=== PATIENT | female | born 1945 ===

== ENCOUNTER 2025-02-04 13:31 | Inpatient (IN) | payer MEDICARE ==
[~2025-02-04] VITALS: Ht 167.6 cm; Wt 61.2 kg
[2025-02-04 14:08] VITALS: BP 124/84; TEMP 98.2
[2025-02-04 14:22] VITALS: BP 124/84; TEMP 98.2
[2025-02-04] MEDS ORDERED: REMEDY ESSENTIAL ZINC PASTE 113 GM TOP PRN (20:15)
[2025-02-04] MEDS ORDERED: OXYC10SY PO (20:27)
[2025-02-04 20:43] VITALS: BP 141/77; TEMP 98; O2SAT 95
[2025-02-04] MEDS: OXYCODONE HCL 5 MG TABLET PO PRN (20:43)
[2025-02-04] MEDS ORDERED: HYDR12.55 PO (22:20)
[2025-02-04] MEDS ORDERED: ASPI-618 PO (22:20)
[2025-02-04] MEDS ORDERED: TRAM50TA PO ×2 (22:20)
[2025-02-04] MEDS ORDERED: ACET-2030 PO (22:20)
[2025-02-04] MEDS ORDERED: ZOLP5TAB2 PO (22:20)
[2025-02-04] MEDS ORDERED: ROPIVACAINE (22:20)
[2025-02-04] MEDS ORDERED: EZET10TA15 PO (22:20)
[2025-02-04] MEDS ORDERED: DEXA4VIA19 IM/IV (22:20)
[2025-02-04] MEDS ORDERED: ONDA4TAB5 PO (22:20)
[2025-02-04] MEDS ORDERED: LOSA50TA3 PO (22:20)
[2025-02-04] MEDS ORDERED: TRAZ-257 PO (22:20)
[2025-02-04] MEDS ORDERED: HYDR-4209 PO (22:20)
[2025-02-04] MEDS ORDERED: ROSU20TA2 PO (22:20)
[2025-02-04] MEDS ORDERED: AMLO5TAB4 PO (22:20)
[2025-02-04] MEDS: TRAZODONE 100 MG TABLET PO SCH ×2 (23:00→23:12)
[2025-02-04] MEDS: ASPIRIN EC 81 MG TABLET.DR PO SCH ×2 (23:00→23:09)
[2025-02-04] MEDS: ASPIRIN EC 81 MG TABLET.DR PO ONE (23:08)
[2025-02-04] MEDS: KETOROLAC TROMETHAMINE 15 MG INJ IVP ONE (23:09)
[2025-02-04] MEDS: TRAZODONE 100 MG TABLET ONE (23:12)
[2025-02-04] MEDS: SENNOSIDES 1 TABLET PO SCH (23:13)
[2025-02-04] MEDS ORDERED: HYDROCODONE/APAP 5-325MG TABLET PO PRN (23:30)
[2025-02-04] MEDS: HYDROCODONE/APAP 5-325MG TABLET PO PRN (23:53)
[2025-02-05 07:26] LABS: CALCIUM 8.8 mg/dL (8.5-10.1); CARBON DIOXIDE 28 mmol/L (21-32); CHLORIDE 104 mmol/L (98-107); CREATININE 0.9 mg/dL (0.6-1.3); GLUCOSE 97 mg/dL (74-106); MAGNESIUM 1.6 mg/dL (1.8-2.4); PHOSPHOROUS 2.9 mg/dL (2.5-4.9); POTASSIUM 4.5 mmol/L (3.5-5.1); SODIUM SERUM 139 mmol/L (136-145); UREA NITROGEN, BLOOD 16 mg/dL (7-18)
[2025-02-05 08:00] VITALS: BP 124/68; TEMP 98.5; O2SAT 98
[2025-02-05 08:00] LABS: BASOPHILS % (AUTO) 0.3 % (0.0-2.0); DIFFERENTIAL COMMENT 0; EOSINOPHILS # (AUTO) 0.1 K/uL (0.0-0.7); EOSINOPHILS % (AUTO) 0.7 % (0.0-7.0); HEMATOCRIT 27.9 % (31.2-41.9); HEMOGLOBIN 9.4 g/dL (10.9-14.3); LYMPHOCYTES # (AUTO) 1.4 K/uL (0.8-4.8); LYMPHOCYTES % (AUTO) 16.3 % (20.5-51.5); MEAN CORPUSCULAR HEMOGLOBIN 28.9 uug (24.7-32.8); MEAN CORPUSCULAR HGB CONC 34 g/dL (32.3-35.6); MEAN CORPUSCULAR VOLUME 85.8 fL (75.5-95.3); MONOCYTES # (AUTO) 1.1 K/uL (0.1-1.30); MONOCYTES % (AUTO) 12.5 % (0.0-11.0); NEUTROPHILS # (AUTO) 6.1 K/uL (1.8-8.9); NEUTROPHILS % (AUTO) 70.2 % (38.5-71.5); PLATELET COUNT (AUTO) 282 K/uL (179-408); RED BLOOD CELL COUNT(AUTO) 3.25 MIL/uL (3.63-4.92); RED CELL DISTRIBUTION WIDTH 15.4 % (12.3-17.7); WHITE BLOOD COUNT (AUTO) 8.8 K/uL (3.8-11.8)
[2025-02-05] MEDS: AMLODIPINE 5 MG TABLET PO SCH (08:35)
[2025-02-05] MEDS: HYDROCHLOROTHIAZIDE 12.5 MG CAPSULE PO SCH (08:35)
[2025-02-05] MEDS: EZETIMIBE 10 MG TABLET PO SCH (08:36)
[2025-02-05] MEDS: LOSARTAN POTASSIUM 50 MG TABLET PO SCH (08:36)
[2025-02-05] MEDS ORDERED: MAGN400O6 PO (10:20)
[2025-02-05] MEDS ORDERED: MAGN355O5 PO (10:23)
[2025-02-05] MEDS ORDERED: OXYC5TAB3 PO (10:26)
[2025-02-05] MEDS ORDERED: OXYC10TA49 PO (10:27)
[2025-02-05] MEDS ORDERED: OLME20TA13 PO (10:29)
[2025-02-05] MEDS: MIRALAX 17 GM POWD.PACK PO PRN (12:46)
[2025-02-05] MEDS: MAGNESIUM OXIDE 400 MG TABLET PO ONE (15:25)
[2025-02-05 16:15] VITALS: BP 108/63; TEMP 98.7; O2SAT 95
[2025-02-05] MEDS: ARGININE/GLUTAMINE/CALCIUM BMB 1 EACH POWD.PACK PO SCH (17:41)
[2025-02-05 20:15] VITALS: BP 120/57; TEMP 99.8; O2SAT 96
[2025-02-05] MEDS: ACETAMINOPHEN 325 MG TABLET PO PRN (20:17)
[2025-02-05] MEDS: ATORVASTATIN 40 MG TABLET PO SCH (20:34)
[2025-02-05] MEDS: TRAZODONE 100 MG TABLET PO SCH (21:22)
[2025-02-06 04:22] VITALS: BP 125/63; TEMP 98.5; O2SAT 97
[2025-02-06 07:47] LABS: CALCIUM 8.9 mg/dL (8.5-10.1); CARBON DIOXIDE 31 mmol/L (21-32); CHLORIDE 99 mmol/L (98-107); CREATININE 0.9 mg/dL (0.6-1.3); GLUCOSE 102 mg/dL (74-106); POTASSIUM 4.5 mmol/L (3.5-5.1); SODIUM SERUM 137 mmol/L (136-145); UREA NITROGEN, BLOOD 12 mg/dL (7-18)
[2025-02-06 08:30] VITALS: BP 117/60; TEMP 100; O2SAT 95
[2025-02-06 16:12] VITALS: BP 107/59; TEMP 99.9; O2SAT 96
[2025-02-06 21:40] VITALS: BP 99/49; TEMP 99.8; O2SAT 93
[2025-02-07 07:10] VITALS: BP 117/47; TEMP 97.8; O2SAT 94
[2025-02-07 08:00] VITALS: BP 98/59; TEMP 98.1; O2SAT 97
[2025-02-07] MEDS ORDERED: NALOXONE HCL 0.4 MG/ML AMPUL IV PRN (13:15)
[2025-02-07] MEDS: OXYCODONE HCL 10 MG TAB.SR.12H PO SCH (14:50)
[2025-02-07] MEDS: BISACODYL 5 MG TABLET.DR PO PRN (14:50)
[2025-02-07 15:47] VITALS: BP 102/53; TEMP 97.2; O2SAT 97
[2025-02-07] MEDS: HYDROCODONE/APAP 10-325 MG TABLET PO PRN (17:29)
[2025-02-07 19:00] VITALS: BP 121/61; TEMP 99.1; O2SAT 97
[2025-02-07] MEDS: DOCUSATE SODIUM 250 MG CAPSULE PO PRN (21:22)
[2025-02-08 07:05] VITALS: BP 116/65; TEMP 98.9; O2SAT 96
[2025-02-08 09:28] VITALS: BP 110/58; TEMP 98.2; O2SAT 96
[2025-02-08 16:30] VITALS: BP 102/50; TEMP 98.8; O2SAT 96
[2025-02-08 19:40] VITALS: BP 112/56; TEMP 98.2; O2SAT 94
[2025-02-09 06:50] VITALS: BP 112/59; TEMP 98.1; O2SAT 98
[2025-02-09 08:00] VITALS: BP 124/62; TEMP 97.8; O2SAT 94
[2025-02-09 08:28] LABS: BASOPHILS # (AUTO) 0.1 K/UL (0.0-0.2); EOSINOPHILS # (AUTO) 0.3 K/uL (0.0-0.7); EOSINOPHILS % (AUTO) 4.4 % (0.0-7.0); HEMATOCRIT 25.9 % (31.2-41.9); LYMPHOCYTES # (AUTO) 1.4 K/uL (0.8-4.8); LYMPHOCYTES % (AUTO) 18.3 % (20.5-51.5); MEAN CORPUSCULAR HEMOGLOBIN 29.9 uug (24.7-32.8); MEAN CORPUSCULAR HGB CONC 35 g/dL (32.3-35.6); MEAN CORPUSCULAR VOLUME 86.1 fL (75.5-95.3); MONOCYTES % (AUTO) 13.8 % (0.0-11.0); NEUTROPHILS # (AUTO) 4.6 K/uL (1.8-8.9); NEUTROPHILS % (AUTO) 62.5 % (38.5-71.5); PLATELET COUNT (AUTO) 380 K/uL (179-408); RED BLOOD CELL COUNT(AUTO) 3.01 MIL/uL (3.63-4.92); RED CELL DISTRIBUTION WIDTH 14.8 % (12.3-17.7); WHITE BLOOD COUNT (AUTO) 7.4 K/uL (3.8-11.8)
[2025-02-09 08:34] LABS: DIFFERENTIAL COMMENT 1
[2025-02-09 08:49] LABS: IRON, SERUM 29 ug/dL (50-175)
[2025-02-09 09:03] LABS: THYROID STIMULATING HORMONE 1.773 mIU/mL (0.358-3.740)
[2025-02-09 09:25] LABS: ALANINE AMINOTRANSFERASE 31 U/L (14-59); ALBUMIN 2.7 g/dL (3.4-5.0); ALKALINE PHOSPHATASE 60 U/L (50-136); ASPARTATE AMINOTRANSFERASE 27 U/L (15-37); BILIRUBIN,TOTAL 0.4 mg/dL (0.2-1.0); CALCIUM 8.9 mg/dL (8.5-10.1); CARBON DIOXIDE 32 mmol/L (21-32); CHLORIDE 101 mmol/L (98-107); CHOLESTEROL 142 mg/dL (<200); CREATININE 0.8 mg/dL (0.6-1.3); GLUCOSE 107 mg/dL (74-106); HDL CHOLESTEROL 67 mg/dL (40-60); MAGNESIUM 2.3 mg/dL (1.8-2.4); PHOSPHOROUS 4.2 mg/dL (2.5-4.9); POTASSIUM 4.1 mmol/L (3.5-5.1); SODIUM SERUM 139 mmol/L (136-145); TOTAL PROTEIN, SERUM 6.8 g/dL (6.4-8.2); TRIGLYCERIDES 84 MG/DL (30-150); UREA NITROGEN, BLOOD 22 mg/dL (7-18)
[2025-02-09 16:35] VITALS: BP 127/66; TEMP 99.7; O2SAT 95
[2025-02-09 19:45] VITALS: BP 148/70; TEMP 97.9; O2SAT 94
[2025-02-09] MEDS: ATORVASTATIN 20 MG TABLET PO SCH (21:20)
[2025-02-10 06:30] VITALS: BP 123/64; TEMP 98.5; O2SAT 94
[2025-02-10] MEDS: FERROUS GLUCONATE 324 MG TABLET PO SCH (08:06)
[2025-02-10 18:52] VITALS: BP 100/42; TEMP 97.7; O2SAT 95
[2025-02-10 20:00] VITALS: BP 112/55; TEMP 98; O2SAT 96
[2025-02-11 06:52] VITALS: BP 120/66; TEMP 97.3; O2SAT 95
[2025-02-11 07:55] VITALS: BP 120/66; TEMP 98; O2SAT 95
[2025-02-11 16:12] VITALS: BP 101/50; TEMP 97.6; O2SAT 97
[2025-02-11 19:23] VITALS: BP 104/57; TEMP 98.3; O2SAT 97
[2025-02-11] MEDS ORDERED: SENNOSIDES 1 TABLET PO PRN (21:45)
[2025-02-12 05:50] VITALS: BP 112/56; TEMP 98.2; O2SAT 98
[2025-02-12 08:00] VITALS: BP 111/67; TEMP 98.7; O2SAT 96
[2025-02-12] MEDS: METOPROLOL SUCCINATE XL 25 MG TAB.SR.24H PO SCH (08:26)
[2025-02-12 17:00] VITALS: BP 116/64; TEMP 98.6; O2SAT 95
[2025-02-12 20:43] VITALS: BP 118/62; TEMP 98.7; O2SAT 95
[2025-02-12] MEDS: DOCUSATE SODIUM 100 MG CAPSULE PO SCH (20:44)
[2025-02-13 06:57] VITALS: BP 114/64; TEMP 98.6; O2SAT 95
[2025-02-13 08:00] VITALS: TEMP 98.2
[2025-02-13 16:00] VITALS: TEMP 98.5
[2025-02-13 20:15] VITALS: BP 100/52; TEMP 98.3; O2SAT 94
[2025-02-14 05:01] VITALS: BP 124/59; TEMP 98; O2SAT 94
[2025-02-14 07:55] VITALS: BP 137/70; TEMP 97.7; O2SAT 98
[2025-02-14 08:08] VITALS: BP 137/70
== END 2025-02-14 15:45 | disposition home health service (06) | DRG 561 ==
PROVIDERS: ADMIT Physical Medicine & Rehabilitation Pain Medicine; ATTEND Physical Medicine & Rehabilitation Pain Medicine
DX: Z47.1 Aftercare following joint replacement surgery (principal); Z96.652 Presence of left artificial knee joint; E83.42 Hypomagnesemia; I10 Essential (primary) hypertension; Z96.641 Presence of right artificial hip joint; Z88.2 Allergy status to sulfonamides
CPT/HCPCS: 36415; 83550; 83735; 84100; 84443; 85025; 97535-GO-CO; A4663; J1885